=== PATIENT | male | born 1995 | race African-American/Black ===

== ENCOUNTER 2018-08-03 04:40 | Emergency (ER) | payer MEDICAID ==
[~2018-08-03] VITALS: Ht 172.7 cm; Wt 63.6 kg
[2018-08-03] MEDS ORDERED: NS 1,000 ML IV ONE (05:00)
[2018-08-03] MEDS ORDERED: METOCLOPRAMIDE INJ 10MG/2ML VIAL (J2765) IV ONE (05:00)
[2018-08-03 05:10] LABS: BASO % 0.2 % (0.0-1.0); EOS % 0.2 % (0.0-3.0); HEMATOCRIT 45.7 % (42.0-52.0); LYMPH # 0.8 10^3/uL (1.5-6.5); LYMPH % 8.3 % (24.0-44.0); MEAN CORPUSCULAR HEMOGLOBIN 30.5 pg (27.0-33.0); MONO # 0.4 10^3/uL (0.0-0.8); MONO % 4.4 % (0.0-5.0); NEUTROPHILS # 8.1 10^3/uL (1.8-7.7); NEUTROPHILS % 86.6 % (36.0-66.0); PLATELET COUNT, AUTOMATED 145 10^3/uL (150-450); RED BLOOD COUNT 5.25 10^6/uL (4.30-6.10); WHITE BLOOD COUNT 9.4 10^3/uL (4.0-10.0)
[2018-08-03] MEDS ORDERED: METAL LOCK LOOP XX ONE (05:32)
[2018-08-03 05:34] LABS: ALBUMIN 4.3 GM/DL (3.2-5.2); ALT/SGPT 26 U/L (12-78); BILIRUBIN,DIRECT 0.3 MG/DL (0.0-0.2); BLOOD UREA NITROGEN 20 MG/DL (7-18); CALCIUM LEVEL 9.3 MG/DL (8.5-10.1); CARBON DIOXIDE LEVEL 23 MEQ/L (21-32); CHLORIDE LEVEL 107 MEQ/L (98-107); CREATININE FOR GFR 0.73 MG/DL (0.70-1.30); GLOMERULAR FILTRATION RATE > 60.0 (>60); GLUCOSE, FASTING 107 MG/DL (70-100); LIPASE 47 U/L (73-393); POTASSIUM SERUM 3.7 MEQ/L (3.5-5.1); SODIUM LEVEL 138 MEQ/L (136-145); TOTAL PROTEIN 7.9 GM/DL (6.4-8.2)
[2018-08-03] MEDS ORDERED: ZOFR4TAB14 PO (05:38)
[2018-08-03 06:05] VITALS: BP 137/97
== END 2018-08-03 06:08 | disposition home or self-care (01) ==
LOC: M ED 04:40
DX: K52.9 Noninfective gastroenteritis and colitis, unspecified (principal)
CPT/HCPCS: 80048; 80076; 83690; 85025; 96361; 96374; 99284; J2765

== ENCOUNTER 2019-01-09 09:55 | Emergency (ER) | payer BC, MEDICAID ==
[~2019-01-09] VITALS: Ht 167.6 cm; Wt 62.3 kg
[~2019-01-09 09:55] MED LIST: ZOFR4TAB14 PO
[2019-01-09] MEDS ORDERED: AUGM875T28 PO (12:59)
[2019-01-09] MEDS ORDERED: ADACEL/BOOSTRIX VACCINE (DIPHTH/PERTUSS/ACELL/TETANUS)0.5ML SYR (90715) IM ONE (13:00)
[2019-01-09 13:16] VITALS: BP 159/89
== END 2019-01-09 13:19 | disposition home or self-care (01) ==
LOC: M ED 09:55
DX: S61.432A Puncture wound without foreign body of left hand, initial encounter (principal); W55.01XA Bitten by cat, initial encounter; Y92.018 Other place in single-family (private) house as the place of occurrence of the external cause

== ENCOUNTER 2024-05-03 12:24 | Emergency (ER) | payer BC, MEDICAID ==
[~2024-05-03] VITALS: Ht 167.6 cm; Wt 63.8 kg
[~2024-05-03 12:24] MED LIST changes: +AUGM875T28 PO
[2024-05-03 15:42] VITALS: BP 141/84; TEMP 98.3; O2SAT 95
== END 2024-05-03 15:45 | disposition home or self-care (01) ==
LOC: M ED 12:24
DX: Z11.52 Encounter for screening for COVID-19 (principal); Z79.2 Long term (current) use of antibiotics